=== PATIENT | male | born 1995 | race Caucasian/White ===

== ENCOUNTER 2016-11-18 20:52 | Emergency (ER) | payer OTHER ==
[~2016-11-18] VITALS: Ht 177.8 cm; Wt 72.6 kg
--- NOTE | 2016-11-18 21:47 | Urgent Treatment Center Report ---
History of Present Issue Date/Time Seen by Provider 11/18/16 3477 Visit Reason Pt arrived:Walked Presenting Problem:PT STATES HE STABBED HIS LT EAR DRUM WITH A Q-TIP AT 2030 Location if Accident: Onset of symptoms date/time:/ or onset unknown for:MEDICAL HX UNKNOWN Have you (or family members/close friends) recently traveled outside the [place]? N If Yes, where/when: Have you had exposure to infectious disease within the past month? TB? Other? Specify: Here w/ c/o left ear pain, bleeding and decreased hearing since injury this evening at 2030. Reports he had just gotten out of the shower, was cleaning the outside of his left ear canal w/ a cotton swab when he must have stepped in a set spot on the floor. slipped and fell left hitting left hand against the wall, pushing cotton swab into ear. Immediate discomfort. looked and noticed blood coming from ear. Came straight to clinic. no treatment prior to arrival. Since injury, pain has become a "throbbing pain" and hearing seems "muffled". Source patient, family Exam Limitations no limitations ALLERGIES Coded Allergies: No Known Allergies (04/18/16) Home Medications Active Scripts Prednisone (Prednisone 20MG) 20 MG PO BID #10 TAB Prov: 06/21/16 History Medical History General CAD? No Angina: No NM: No Hypertension? No Hyperlipidemia? No CHF? No DVT? No PE? No COPD? No Asthma? No Anemia? No GERD? No Gastric ulcers? No GI Bleed? No Hernia? No Thyroid Problems? No Hypothyroidism? No CVA? No Seizures? No Diabetes? No Renal Insuffiency? No UTI? No Stones? No BPH? No GB Disease: No Nephritic Syndrome? No Asplenia? No Hepatitis? No Sickle Cell Disease? No Arthritis? No Migraines? No Cataracts? No Glaucoma? No MRSA? No HIV? No TB? No Anxiety? No Depression? No Cancer? No More? No Immunization HX DT/Tetanus 5-10 YRS Flu UNKNOWN Pneumonia REFUSES Surgical Hx Previous Surgery?N Family History Family HX Diabetes No CAD No Hypertension No Hyperlipidemia No Cancer Yes TB No Social History Smoking Hx Smoker: Never Smoker Tobacco: No Alcohol Alcohol: No Review of Systems All Other Systems Reviewed and Negative Constitutional denies fever ENT see HPI. denies: nose pain, mouth pain. Musculoskeletal denies back pain, denies joint pain, denies neck pain, other ("just my ear is all") Skin denies lesions, denies lumps Psychiatric/Neurological denies headache, denies other (dizziness) Physical Exam Vital Signs Vital Signs Date Time Temp Pulse Resp B/P Pulse O2 O2 Flow FiO2 Ox Delivery Rate 11/19 2207 98.3 87 20 112/79 98 11/19 2131 98.3 87 20 112/79 98 General Appearance normal appearance, no apparent distress, still laughing about incident Ear, Nose, Throat hearing grossly normal, normal ENT except dried sanguinous drainage left EAC and on TM complicating exam. No obvious laceration of EAC or perforation of TM Neck non-tender, supple, full range of motion Respiratory Status No: respiratory distress. Cardiovascular no peripheral edema Neurologic alert, oriented x 3 Skin normal color, warm/dry Medical Decision Making LABS/Meds/Orders Pt receiving controlled substance in ED? No Consult MD Physician Consult Consult/PCP Dr. Lennon, ER MD Time Called 2204 Reason Pt. Condition Comments Does NOT recommend flushing for better exam. Refer to ENT. Departure Departure Time of Disposition 2202 Disposition DC Home or Self Care(routine) Clinical Impression Primary Impression: Trauma of ear canal Qualifiers: Encounter type: initial encounter Qualified Code: S09.91XA - Unspecified injury of ear, initial encounter Secondary Impressions: Acute pain of left ear, Bleeding from left ear Condition STABLE Referrals Maegan Dumont MD In [place] tomorrow morning only 9-12. Call office first thing in morning, report trauma and visit to [facility] and see if they can fit you in. If not, you also have Dr. Kumar as an option. If neither can see you, follow up with primary care tomorrow. Carlos Kumar MD Call in morning. Tell them of trauma to left ear canal w/ bleeding and seen in [facility], told to call and follow up [facility]. Inquire what office he is in on Tuesdays. If you are willing to drive, he will likely see you. If not or he can't, try Dr. Dumont. If you can't see either, follow up with primary care. Patient Instructions Ruptured Eardrum Additional Instructions Exam complicated by dried blood. Could possibly be ear canal trauma but risk of ear drum rupture high. Follow up is a must. Call [facility]NT[facility] tomorrow morning and if unable to get in with them or PCP, call [facility] and we will do our best to help you get seen tomorrow. Discharge Counseling Counseled pt/family regarding diagnosis, home care, follow up needs at [phone]
--- NOTE | 2016-11-18 21:47 | Urgent Treatment Center Report ---
History of Present Issue Date/Time Seen by Provider 11/18/16 3724 Visit Reason Pt arrived:Walked Presenting Problem:PT STATES HE STABBED HIS LT EAR DRUM WITH A Q-TIP AT 2030 Location if Accident: Onset of symptoms date/time:/ or onset unknown for:MEDICAL HX UNKNOWN Have you (or family members/close friends) recently traveled outside the [place]? N If Yes, where/when: Have you had exposure to infectious disease within the past month? TB? Other? Specify: Here w/ c/o left ear pain, bleeding and decreased hearing since injury this evening at 2030. Reports he had just gotten out of the shower, was cleaning the outside of his left ear canal w/ a cotton swab when he must have stepped in a set spot on the floor. slipped and fell left hitting left hand against the wall, pushing cotton swab into ear. Immediate discomfort. looked and noticed blood coming from ear. Came straight to clinic. no treatment prior to arrival. Since injury, pain has become a "throbbing pain" and hearing seems "muffled". Source patient, family Exam Limitations no limitations ALLERGIES Coded Allergies: No Known Allergies (04/18/16) Home Medications Active Scripts Prednisone (Prednisone 20MG) 20 MG PO BID #10 TAB Prov: 06/21/16 History Medical History General CAD? No Angina: No GA: No Hypertension? No Hyperlipidemia? No CHF? No DVT? No PE? No COPD? No Asthma? No Anemia? No GERD? No Gastric ulcers? No GI Bleed? No Hernia? No Thyroid Problems? No Hypothyroidism? No CVA? No Seizures? No Diabetes? No Renal Insuffiency? No UTI? No Stones? No BPH? No GB Disease: No Nephritic Syndrome? No Asplenia? No Hepatitis? No Sickle Cell Disease? No Arthritis? No Migraines? No Cataracts? No Glaucoma? No MRSA? No HIV? No TB? No Anxiety? No Depression? No Cancer? No More? No Immunization HX DT/Tetanus 5-10 YRS Flu UNKNOWN Pneumonia REFUSES Surgical Hx Previous Surgery?N Family History Family HX Diabetes No CAD No Hypertension No Hyperlipidemia No Cancer Yes TB No Social History Smoking Hx Smoker: Never Smoker Tobacco: No Alcohol Alcohol: No Review of Systems All Other Systems Reviewed and Negative Constitutional denies fever ENT see HPI. denies: nose pain, mouth pain. Musculoskeletal denies back pain, denies joint pain, denies neck pain, other ("just my ear is all") Skin denies lesions, denies lumps Psychiatric/Neurological denies headache, denies other (dizziness) Physical Exam Vital Signs Vital Signs Date Time Temp Pulse Resp B/P Pulse O2 O2 Flow FiO2 Ox Delivery Rate 11/19 2207 98.3 87 20 112/79 98 11/19 2131 98.3 87 20 112/79 98 General Appearance normal appearance, no apparent distress, still laughing about incident Ear, Nose, Throat hearing grossly normal, normal ENT except dried sanguinous drainage left EAC and on TM complicating exam. No obvious laceration of EAC or perforation of TM Neck non-tender, supple, full range of motion Respiratory Status No: respiratory distress. Cardiovascular no peripheral edema Neurologic alert, oriented x 3 Skin normal color, warm/dry Medical Decision Making LABS/Meds/Orders Pt receiving controlled substance in ED? No Consult MD Physician Consult Consult/PCP Dr. Lennon, ER MD Time Called 2204 Reason Pt. Condition Comments Does NOT recommend flushing for better exam. Refer to ENT. Departure Departure Time of Disposition 2202 Disposition DC Home or Self Care(routine) Clinical Impression Primary Impression: Trauma of ear canal Qualifiers: Encounter type: initial encounter Qualified Code: S09.91XA - Unspecified injury of ear, initial encounter Secondary Impressions: Acute pain of left ear, Bleeding from left ear Condition STABLE Referrals Maegan Dumont MD In [place] tomorrow morning only 9-12. Call office first thing in morning, report trauma and visit to [facility] and see if they can fit you in. If not, you also have Dr. Kumar as an option. If neither can see you, follow up with primary care tomorrow. Carlos Kumar MD Call in morning. Tell them of trauma to left ear canal w/ bleeding and seen in [facility], told to call and follow up [facility]. Inquire what office he is in on Tuesdays. If you are willing to drive, he will likely see you. If not or he can't, try Dr. Dumont. If you can't see either, follow up with primary care. Patient Instructions Ruptured Eardrum Additional Instructions Exam complicated by dried blood. Could possibly be ear canal trauma but risk of ear drum rupture high. Follow up is a must. Call [facility]NT[facility] tomorrow morning and if unable to get in with them or PCP, call [facility] and we will do our best to help you get seen tomorrow. Discharge Counseling Counseled pt/family regarding diagnosis, home care, follow up needs at [phone]
[2016-11-18 22:08] VITALS: BP 112/79
== END 2016-11-18 22:13 | disposition home or self-care (01) ==
LOC: UTC 20:52
DX: S09.91XA Unspecified injury of ear, initial encounter (principal); H92.02 Otalgia, left ear; W20.8XXA Other cause of strike by thrown, projected or falling object, initial encounter; Y93.E1 Activity, personal bathing and showering; Y92.002 Bathroom of unspecified non-institutional (private) residence as the place of occurrence of the external cause